=== PATIENT | male | born 1985 | race Caucasian/White ===

== ENCOUNTER 2021-08-18 08:20 | Emergency (ER) | payer BC, OTHER ==
[2021-08-18 08:47] VITALS: BP 144/88; PULSE 88
[2021-08-18 09:29] LABS: CORONAVIRUS COVID-19 NAA POSITIVE (NEGATIVE)
== END 2021-08-18 10:39 | disposition home or self-care (01) ==
LOC: DL.ED 08:20
DX: U07.1 COVID-19 (principal); Z91.030 Bee allergy status
CPT/HCPCS: 0240U; 87081; 87430; 99283